=== PATIENT | female | born 1960 | race African-American/Black ===

== ENCOUNTER 2020-01-08 14:10 | Emergency (ER) | payer MEDICAID ==
[~2020-01-08] VITALS: Ht 157.5 cm; Wt 73.0 kg
[~2020-01-08 14:10] MED LIST: BACL-141 PO; CYCL5TAB PO; GABA-529 PO; GABA-531 PO; HYDR-4094 PO; LOSA100T32 PO; SERT25TA74 PO
[2020-01-08 14:22] VITALS: BP 157/82
[2020-01-08] MEDS ORDERED: ACETAMINOPHEN 325MG TABLET PO ONE (15:30)
== END 2020-01-08 16:35 | disposition home or self-care (01) ==
LOC: ER 14:41
DX: S13.4XXA Sprain of ligaments of cervical spine, initial encounter (principal); M62.830 Muscle spasm of back; M25.561 Pain in right knee; I10 Essential (primary) hypertension; Z88.6 Allergy status to analgesic agent; Z91.040 Latex allergy status; Z79.899 Other long term (current) drug therapy; Z98.890 Other specified postprocedural states; V49.9XXA Car occupant (driver) (passenger) injured in unspecified traffic accident, initial encounter; Y93.89 Activity, other specified; Y92.89 Other specified places as the place of occurrence of the external cause; Y99.8 Other external cause status
CPT/HCPCS: 72040; 73562; 99284